=== PATIENT | female | born 1945 | race Caucasian/White ===

== ENCOUNTER 2017-12-22 06:34 | Emergency (ER) | payer MEDICARE, BC ==
[~2017-12-22] VITALS: Ht 152.4 cm; Wt 47.7 kg
[~2017-12-22 06:34] MED LIST: AMOXICILLIN500 MG PO; ATENOLOL25 MG PO
[2017-12-22 06:52] LABS: HEMATOCRIT 38.2 % (37.0-47.0); HEMOGLOBIN 12.7 g/dl (12.0-16.0); IMMATURE GRANULOCYTES 0.4 % (0.0-1.0); MEAN CELL VOLUME 97.2 fL CALC (80.0-100.0); MEAN CORPUSCULAR HGB 32.3 pG CALC (26.0-32.0); MEAN CORPUSCULAR HGB CONC 33.2 g/L CALC (32.0-36.0); NEUT# 3.73 thou/uL (2.00-7.15); RED BLOOD COUNT 3.93 mill/uL (4.20-5.60); RED CELL DISTRI WIDTH 13.2 % (11.5-15.5)
[2017-12-22 07:01] LABS: CREATININE 1.1 mg/dL (0.5-1.0); POTASSIUM 3.8 mmol/l (3.5-5.1)
[2017-12-22 07:27] VITALS: BP 133/58
== END 2017-12-22 07:27 | disposition short-term general hospital (02) ==
LOC: ED 06:34
PROVIDERS: Family Medicine
DX: I21.09 ST elevation (STEMI) myocardial infarction involving other coronary artery of anterior wall (principal); R07.9 Chest pain, unspecified; F17.200 Nicotine dependence, unspecified, uncomplicated

== ENCOUNTER 2018-10-06 08:02 | Day surgery (SDC) | payer MEDICARE, BC ==
[~2018-10-06] VITALS: Ht 152.4 cm; Wt 52.2 kg
[~2018-10-06 08:02] MED LIST changes: +B121000 MCG; +CALCIUM & MAGNE1 TAB PO; +CARVEDILOL25 MG PO; +COQ-10100 M1 PO; +COREG12.5 MG PO; +D3400 UNIT; +ECOTRIN LOW STR81 MG PO; +LIPITOR10 M1 PO; +MULTI FOR HER 50+ PO; +SM VITAMIN B PO; +SUPER B COM2 PO; +SUPER BIOTIN5000 MC1 PO; +VITAMI16; +ZINC50 M1 PO
[2018-10-06] MEDS ORDERED: AMOXICILLIN500 MG PO (09:19)
[2018-10-06 10:21] VITALS: BP 105/54
== END 2018-10-06 10:26 | disposition home or self-care (01) ==
LOC: ENDO 08:02 → ORM 12:45
PROVIDERS: ATTEND Surgery
PROC: 0DJD8ZZ Inspection of Lower Intestinal Tract, Via Natural or Artificial Opening Endoscopic (ICD-10-PCS; principal; 2018-10-06)
DX: R19.5 Other fecal abnormalities (principal); Q43.8 Other specified congenital malformations of intestine; K57.30 Diverticulosis of large intestine without perforation or abscess without bleeding; Z87.891 Personal history of nicotine dependence

== ENCOUNTER 2020-06-04 08:19 | Emergency (ER) | payer MEDICARE, BC ==
[~2020-06-04] VITALS: Ht 152.4 cm; Wt 65.0 kg
[2020-06-04 08:48] LABS: HEMOGLOBIN 12.1 g/dl (12.0-16.0); IMMATURE GRANULOCYTES 0.5 % (0.0-5.0); MEAN CELL VOLUME 97.7 fL CALC (80.0-100.0); MEAN CORPUSCULAR HGB 30.3 pG CALC (26.0-32.0); NEUT# 7.73 thou/uL (2.00-7.15); RED BLOOD COUNT 3.99 mill/uL (4.20-5.60); RED CELL DISTRI WIDTH 14.1 % (11.5-15.5)
[2020-06-04 09:30] LABS: ALBUMIN 3.6 g/dL (3.2-5.0); ALKALINE PHOSPHATASE 92 u/l (38-126); ANION GAP 7 (6-22 (CALC)); BILIRUBIN, TOTAL 0.7 mg/dL (0.0-1.4); BUN 21 mg/dL (8-23); BUN/CREATININE RATIO 23 (12-20 (CALC)); CARBON DIOXIDE 25 mmol/l (22-30); CHLORIDE 106 mmol/l (95-108); CREATININE 0.9 mg/dL (0.5-1.0); GFR > 60 ML/MIN (>=60 (CALC)); GFR FOR AFR.AMER. > 60 ML/MIN (>=60 (CALC)); LIPASE 86 u/l (23-300); POTASSIUM 3.9 mmol/l (3.5-5.1); SGOT/AST 23 u/l (9-36); SODIUM 135 mmol/l (137-146); TOTAL PROTEIN 6.3 g/dL (6.3-8.2)
[2020-06-04 09:46] LABS: URINE BILIRUBIN - DIPSTICK NEGATIVE (NEGATIVE); URINE BLOOD DIPSTICK NEGATIVE (NEGATIVE); URINE COLOR YELLOW; URINE GLUCOSE - DIPSTICK NEGATIVE (NEGATIVE); URINE KETONE NEGATIVE (NEGATIVE); URINE LEUK ESTERASE NEGATIVE (NEGATIVE); URINE NITRITE - DIPSTICK NEGATIVE (Negative); URINE PH 5.5 (4.5-8.0); URINE PROTEIN - DIPSTICK NEGATIVE (NEG-TRACE); URINE SPECIFIC GRAVITY >=1.030; URINE UROBILINOGEN - DIPSTICK 0.2 E.U./dL (0.2)
[2020-06-04] MEDS ORDERED: METOPROL TAR25 MG PO (10:20)
[2020-06-04] MEDS ORDERED: PREDNISONE5 MG PO (10:23)
[2020-06-04] MEDS ORDERED: ZITHROMAX250 MG PO (10:44)
[2020-06-04 11:07] VITALS: BP 120/57
== END 2020-06-04 11:35 | disposition home or self-care (01) ==
LOC: ED 08:19
PROVIDERS: Student in an Organized Health Care Education/Training Program
DX: J18.9 Pneumonia, unspecified organism (principal); I25.10 Atherosclerotic heart disease of native coronary artery without angina pectoris; I25.2 Old myocardial infarction; Z86.73 Personal history of transient ischemic attack (TIA), and cerebral infarction without residual deficits; R07.9 Chest pain, unspecified